=== PATIENT | female | born 1945 | race Caucasian/White ===

== ENCOUNTER 2022-01-14 08:10 | Emergency (ER) | payer MEDICARE, BC ==
[2022-01-14] MEDS ORDERED: hydrALAZINE 25 MG Tab PO ONE ×2 (08:11→09:34)
[2022-01-14] MEDS ORDERED: Labetalol 20 MG/4 ML Syringe IVPUSH ONE (08:30)
[2022-01-14] MEDS ORDERED: Sodium Chloride 0.9% 10 ML Syringe FLUSH PRN (08:30)
[2022-01-14 09:10] LABS: ANION GAP 16.4 mEq/L (7-13)
[2022-01-14] MEDS ORDERED: hydrALAZINE 25 MG Tab ONE (10:58)
== END 2022-01-14 11:07 | disposition home or self-care (01) ==
LOC: DL.ED 08:10
DX: I10 Essential (primary) hypertension (principal); Z88.5 Allergy status to narcotic agent; Z88.8 Allergy status to other drugs, medicaments and biological substances; Z91.013 Allergy to seafood
CPT/HCPCS: 36415; 80053; 85025; 96374; 99283; 99283-25; A9270-GY; J3490

== ENCOUNTER 2022-01-15 10:45 | Emergency (ER) | payer MEDICARE, BC ==
[2022-01-15 11:57] LABS: ANION GAP 15.9 mEq/L (7-13); CHLORIDE,CL 104 mmol/L (98-107); SODIUM,NA 144 mmol/L (136-145)
[2022-01-15] MEDS ORDERED: hydrALAZINE 25 MG Tab PO SCH (12:00)
[2022-01-15] MEDS ORDERED: LORazepam 2 MG/ML SDV IVPUSH ONE (13:32)
== END 2022-01-15 14:14 ==
LOC: DL.ED 10:45
DX: M62.81 Muscle weakness (generalized) (principal); Z88.5 Allergy status to narcotic agent; Z91.013 Allergy to seafood; Z88.8 Allergy status to other drugs, medicaments and biological substances; Z79.899 Other long term (current) drug therapy; Z20.822 Contact with and (suspected) exposure to COVID-19; Z95.828 Presence of other vascular implants and grafts
CPT/HCPCS: 36415; 70450; 80053; 80307; 82947; 84443; 84484; 85025; 93005; 93010; 96374; 99285; 99285-25; A9270-GY; J2060; U0002

== ENCOUNTER 2022-05-29 13:48 | Emergency (ER) | payer MEDICARE, BC ==
[2022-05-29 14:43] LABS: PTT,PARTIAL THROMBOPLSTIN TIME 20.7 SEC (22.0-34.0)
[2022-05-29 14:57] LABS: AMPHETAMINES,URINE NEGATIVE (NEGATIVE); BARBITURATES,URINE NEGATIVE (NEGATIVE); BENZODIAZEPINE,URINE NEGATIVE (NEGATIVE); MDMA (ECSTASY), URINE NEGATIVE (NEGATIVE); METHADONE,URINE NEGATIVE (NEGATIVE); METHAMPHETAMINES,URINE NEGATIVE (NEGATIVE); OPIATES,URINE NEGATIVE (NEGATIVE); OXYCODONE,URINE NEGATIVE (NEGATIVE); PHENCYCLIDINE,URINE NEGATIVE (NEGATIVE); TCA,URINE NEGATIVE (NEGATIVE)
[2022-05-29 14:58] LABS: ANION GAP 11.8 mEq/L (7-13); CHLORIDE,CL 101 mmol/L (98-107); SODIUM,NA 135 mmol/L (136-145)
[2022-05-29 14:59] LABS: ESTIMATED GFR 47 mL/min (>=60)
== END 2022-05-29 16:03 | disposition home or self-care (01) ==
LOC: DL.ED 13:48
DX: I63.9 Cerebral infarction, unspecified (principal); G45.9 Transient cerebral ischemic attack, unspecified; I10 Essential (primary) hypertension; Z88.5 Allergy status to narcotic agent; Z88.8 Allergy status to other drugs, medicaments and biological substances; Z91.013 Allergy to seafood; Z79.899 Other long term (current) drug therapy
CPT/HCPCS: 36415; 70450; 80053; 80305-QW; 80307; 83735; 84443; 85025; 85610; 85730; 93005; 93010; 99284; 99285

== ENCOUNTER 2022-07-22 17:12 | Emergency (ER) | payer MEDICARE, BC ==
[2022-07-22] MEDS ORDERED: LORazepam 2 MG/ML SDV IVPUSH ONE ×2 (19:43→20:25)
== END 2022-07-22 21:45 | disposition home or self-care (01) ==
LOC: DL.ED 17:12
DX: I10 Essential (primary) hypertension (principal); Z88.8 Allergy status to other drugs, medicaments and biological substances; Z91.013 Allergy to seafood
CPT/HCPCS: 96374; 96376; 99283; J2060

== ENCOUNTER 2022-07-28 18:40 | Emergency (ER) | payer MEDICARE, BC | END 2022-07-28 19:30 | disposition left against medical advice (07) | LOC: DL.ED 18:40 | DX: Z53.21 Procedure and treatment not carried out due to patient leaving prior to being seen by health care provider (principal) ==

== ENCOUNTER 2024-03-05 08:00 | Emergency (ER) | payer MEDICARE, BC ==
[2024-03-05 08:45] LABS: BASOPHILS PERCENT AUTO 0.4 % (0.0-1.0); EOSINOPHILS PERCENT AUTO 3.8 % (1.0-3.0); HEMATOCRIT 37.7 % (37.0-47.0); HEMOGLOBIN 12.7 g/dL (12.0-16.0); LYMPHOCYTES PERCENT AUTO 20.6 % (20.5-50.1); MEAN CORPUSCULAR HEMOGLOBIN 31.8 pg (27.0-34.0); MEAN CORPUSCULAR HGB CONC 33.7 g/dL (33.0-35.0); MEAN CORPUSCULAR VOLUME 94.5 fL (80-100); MONOCYTES PERCENT AUTO 11.4 % (2-8); NEUTROPHILS PERCENT AUTO 63.8 % (42.2-75.2); PLATELET COUNT,PLT 194 10^3/uL (150-450); RED BLOOD CELL COUNT 3.99 10^6/uL (4.2-5.4)
[2024-03-05 09:10] LABS: A/G RATIO 1.3; ALBUMIN 3.8 g/dL (3.4-5.0); ANION GAP 13.4 mEq/L (7-13); BILIRUBIN TOTAL 0.7 mg/dL (0.2-1.0); BUN/CREATININE RATIO 16.2 (No establ ref range); CALCIUM 8.8 mg/dL (8.5-10.1); CREATININE 1.05 mg/dL (0.55-1.02); EST CRCL DRUG DOSING (CG) 36.9 mL/min; POTASSIUM,K 4.4 mmol/L (3.5-5.1); PROTEIN TOTAL,TP 6.7 g/dL (6.4-8.2)
== END 2024-03-05 11:18 | disposition hospice, home (50) ==
LOC: DL.ED 08:00
DX: I10 Essential (primary) hypertension (principal); R07.89 Other chest pain; E78.00 Pure hypercholesterolemia, unspecified; Z88.1 Allergy status to other antibiotic agents; Z88.5 Allergy status to narcotic agent; Z91.013 Allergy to seafood; Z79.890 Hormone replacement therapy; Z79.899 Other long term (current) drug therapy; Z79.02 Long term (current) use of antithrombotics/antiplatelets; Z86.73 Personal history of transient ischemic attack (TIA), and cerebral infarction without residual deficits; Z79.82 Long term (current) use of aspirin
CPT/HCPCS: 36415; 80053; 82947; 84484; 85025; 93005; 99283

== ENCOUNTER 2024-03-17 22:33 | Emergency (ER) | payer MEDICARE, BC ==
[2024-03-17 23:22] LABS: BASOPHILS PERCENT AUTO 0.5 % (0.0-1.0); EOSINOPHILS PERCENT AUTO 5.1 % (1.0-3.0); HEMATOCRIT 35.2 % (37.0-47.0); HEMOGLOBIN 11.8 g/dL (12.0-16.0); LYMPHOCYTES PERCENT AUTO 28.5 % (20.5-50.1); MEAN CORPUSCULAR HEMOGLOBIN 31.6 pg (27.0-34.0); MEAN CORPUSCULAR HGB CONC 33.5 g/dL (33.0-35.0); MEAN CORPUSCULAR VOLUME 94.1 fL (80-100); MONOCYTES PERCENT AUTO 10.8 % (2-8); NEUTROPHILS PERCENT AUTO 55.1 % (42.2-75.2); PLATELET COUNT,PLT 164 10^3/uL (150-450); RED BLOOD CELL COUNT 3.74 10^6/uL (4.2-5.4); WHITE BLOOD CELL COUNT,WBC 3.7 10^3/uL (5.0-10.0)
[2024-03-17] MEDS: hydrALAZINE 20 MG/ML SDV IVPUSH ONE (23:23)
[2024-03-17 23:47] LABS: A/G RATIO 1.3; ALBUMIN 3.6 g/dL (3.4-5.0); ANION GAP 15.4 mEq/L (7-13); BILIRUBIN TOTAL 0.4 mg/dL (0.2-1.0); BUN/CREATININE RATIO 22.2 (No establ ref range); CREATININE 0.99 mg/dL (0.55-1.02); EST CRCL DRUG DOSING (CG) 39.14 mL/min; MAGNESIUM 1.9 mg/dL (1.8-2.4); POTASSIUM,K 4.4 mmol/L (3.5-5.1); PROTEIN TOTAL,TP 6.3 g/dL (6.4-8.2); TSH ULTRASENSITIVE 7.45 uIU/mL (0.36-3.74)
[2024-03-17 23:54] LABS: APPEARANCE,URINE CLEAR (CLEAR); BILIRUBIN,URINE NEGATIVE (NEGATIVE); COLOR,URINE YELLOW (YELLOW); GLUCOSE,URINE NEGATIVE (NEGATIVE); KETONES,URINE NEGATIVE (NEGATIVE); LEUKOCYTE ESTERASE,URINE NEGATIVE (NEGATIVE); NITRITE,URINE NEGATIVE (NEGATIVE); OCCULT BLOOD,URINE NEGATIVE (NEGATIVE); PROTEIN,URINE NEGATIVE (NEGATIVE); UROBILINOGEN,URINE 0.2 mg/dL (0.2-1.0)
== END 2024-03-18 00:10 | disposition home or self-care (01) ==
LOC: DL.ED 22:33
DX: I16.0 Hypertensive urgency (principal); I10 Essential (primary) hypertension; Z79.899 Other long term (current) drug therapy; Z79.82 Long term (current) use of aspirin; Z88.8 Allergy status to other drugs, medicaments and biological substances; Z91.013 Allergy to seafood
CPT/HCPCS: 36415; 71045; 80053; 81003; 83735; 84439; 84443; 84481; 84484; 85025; 93005; 93010; 96374; 99284; J0360